=== PATIENT | female | born 1965 | race Asian ===

== ENCOUNTER → 2021-07-15 | Day surgery (SDC) | payer OTHER ==
[~2021-07-15] VITALS: Ht 167.6 cm; Wt 61.7 kg
[~2021-07-15] MED LIST: ALLEGRA ALLERG180 MG PO
== END | disposition home or self-care (01) ==
LOC: FAS 08:01
DX: Z12.11 Encounter for screening for malignant neoplasm of colon (principal); Z88.0 Allergy status to penicillin; Z90.710 Acquired absence of both cervix and uterus; Z79.899 Other long term (current) drug therapy; Z72.89 Other problems related to lifestyle; Z82.49 Family history of ischemic heart disease and other diseases of the circulatory system; Z83.3 Family history of diabetes mellitus
CPT/HCPCS: J2704; J7120